=== PATIENT | female | born 1950 | race Caucasian/White ===

== ENCOUNTER 2021-04-05 15:33 | Emergency (ER) | payer MEDICARE, BC ==
[~2021-04-05] VITALS: Ht 154.9 cm; Wt 60.0 kg
[2021-04-05] MEDS ORDERED: NORVASC5 M1 PO (15:43)
[2021-04-05] MEDS ORDERED: RISPERIDONE0.25 MG (15:44)
[2021-04-05] MEDS ORDERED: CLOMIPRAMINE25 MG PO (15:44)
[2021-04-05 19:02] LABS: HEMATOCRIT 40.9 % (37.0-47.0); HEMOGLOBIN 13.3 g/dl (12.0-16.0); IMMATURE GRANULOCYTES 0.2 % (0.0-5.0); MEAN CELL VOLUME 92.7 fL CALC (80.0-100.0); MEAN CORPUSCULAR HGB 30.2 pG CALC (26.0-32.0); MEAN CORPUSCULAR HGB CONC 32.5 g/dL CAL (32.0-36.0); NEUT# 9.46 thou/uL (2.00-7.15); RED BLOOD COUNT 4.41 mill/uL (4.20-5.60); RED CELL DISTRI WIDTH 12.9 % (11.5-15.5)
[2021-04-05 19:18] LABS: ALBUMIN 4.1 g/dL (3.2-5.0); ALKALINE PHOSPHATASE 77 u/l (38-126); ANION GAP 16 (6-22 (CALC)); BILIRUBIN, TOTAL 0.7 mg/dL (0.0-1.4); BUN 9 mg/dL (8-23); BUN/CREATININE RATIO 12 (12-20 (CALC)); CARBON DIOXIDE 25 mmol/l (22-30); CHLORIDE 98 mmol/l (95-108); CREATININE 0.8 mg/dL (0.5-1.0); GFR > 60 ML/MIN (>=60 (CALC)); GFR FOR AFR.AMER. > 60 ML/MIN (>=60 (CALC)); SGOT/AST 20 u/l (9-36); SODIUM 135 mmol/l (137-146); TOTAL PROTEIN 7.4 g/dL (6.3-8.2)
[2021-04-05] MEDS ORDERED: VIBRAMYCIN100 M2 PO (19:45)
[2021-04-05 19:57] VITALS: BP 161/65
== END 2021-04-05 19:57 | disposition home or self-care (01) ==
LOC: ED 15:33
PROVIDERS: Family Medicine
DX: J20.9 Acute bronchitis, unspecified (principal); I10 Essential (primary) hypertension; F32.A Depression, unspecified; Z20.822 Contact with and (suspected) exposure to COVID-19

== ENCOUNTER 2022-05-04 16:36 | Emergency (ER) | payer MEDICARE, BC ==
[~2022-05-04] VITALS: Ht 154.9 cm; Wt 65.0 kg
[~2022-05-04 16:36] MED LIST: CLOMIPRAMINE25 MG PO; NORVASC5 M1 PO; RISPERIDONE0.25 MG; VIBRAMYCIN100 M2 PO
[2022-05-04 18:48] VITALS: BP 122/93
[2022-05-04 19:00] VITALS: BP 126/89
[2022-05-04 19:15] VITALS: BP 127/78
[2022-05-04] MEDS ORDERED: LEVOCETIRIZINE D5 MG PO (19:37)
[2022-05-04] MEDS ORDERED: PREDNISONE10 MG PO (19:37)
[2022-05-04 20:13] VITALS: BP 127/78
== END 2022-05-04 20:14 | disposition home or self-care (01) ==
LOC: ED 16:36
DX: J20.9 Acute bronchitis, unspecified (principal); J45.909 Unspecified asthma, uncomplicated; I10 Essential (primary) hypertension; F32.A Depression, unspecified; T48.6X6A Underdosing of antiasthmatics, initial encounter; T49.6X6A Underdosing of otorhinolaryngological drugs and preparations, initial encounter; Z91.128 Patient's intentional underdosing of medication regimen for other reason; Z20.822 Contact with and (suspected) exposure to COVID-19

== ENCOUNTER 2022-11-05 15:45 | Emergency (ER) | payer MEDICARE, BC ==
[~2022-11-05] VITALS: Ht 154.9 cm; Wt 59.0 kg
[2022-11-05] VITALS (13 sets, daily range): BP systolic 138–178; BP diastolic 70–103
[~2022-11-05 15:45] MED LIST changes: +LEVOCETIRIZINE D5 MG PO; +PREDNISONE10 MG PO
[2022-11-05] MEDS ORDERED: FIORICET PO (18:09)
== END 2022-11-05 18:54 | disposition home or self-care (01) ==
LOC: ED 15:45
DX: S00.83XA Contusion of other part of head, initial encounter (principal); I10 Essential (primary) hypertension; F32.A Depression, unspecified; W01.0XXA Fall on same level from slipping, tripping and stumbling without subsequent striking against object, initial encounter; Y92.009 Unspecified place in unspecified non-institutional (private) residence as the place of occurrence of the external cause

== ENCOUNTER 2022-12-18 13:06 | Emergency (ER) | payer MEDICARE, BC ==
[2022-12-18] VITALS (8 sets, daily range): BP systolic 132–160; BP diastolic 77–93
[~2022-12-18] VITALS: Ht 154.9 cm; Wt 59.8 kg
[~2022-12-18 13:06] MED LIST changes: +FIORICET PO
[2022-12-18 14:26] LABS: ALBUMIN 3.9 g/dL (3.2-5.0); ALKALINE PHOSPHATASE 89 u/l (38-126); BUN 8 mg/dL (8-23); BUN/CREATININE RATIO 11 (12-20 (CALC)); CARBON DIOXIDE 24 mmol/l (22-30); CHLORIDE 93 mmol/l (95-108); CREATININE 0.7 mg/dL (0.5-1.0); GFR FOR AFR.AMER. > 60 ML/MIN (>=60 (CALC)); GFR OTHER RACES > 60 ML/MIN (>=60 (CALC)); POTASSIUM 4.3 mmol/l (3.5-5.1)
[2022-12-18 14:35] LABS: BASO% 0.3 % (0-3); EOS% 1.5 % (0-8); HEMOGLOBIN 12.5 g/dl (12.0-16.0); IMMATURE GRANULOCYTES 0.2 % (0.0-5.0); LYMPH% 18.5 % (15-41); MEAN CELL VOLUME 90.7 fL CALC (80.0-100.0); MEAN CORPUSCULAR HGB 30.6 pG CALC (26.0-32.0); MEAN CORPUSCULAR HGB CONC 33.8 g/dL CAL (32.0-36.0); MONO% 11.7 % (2-13); NEUT# 4.06 thou/uL (2.00-7.15); NEUT% 67.8 % (42-76); RED BLOOD COUNT 4.08 mill/uL (4.20-5.60); RED CELL DISTRI WIDTH 12.6 % (11.5-15.5)
[2022-12-18 14:36] LABS: URINE BILIRUBIN - DIPSTICK Negative (NEGATIVE); URINE BLOOD DIPSTICK Negative (NEGATIVE); URINE GLUCOSE - DIPSTICK Negative (NEGATIVE); URINE KETONE Negative (NEGATIVE); URINE LEUK ESTERASE Negative (NEGATIVE); URINE NITRITE - DIPSTICK Negative (Negative); URINE PH 6.5 (4.5-8.0); URINE PROTEIN - DIPSTICK Negative (NEG-TRACE); URINE UROBILINOGEN - DIPSTICK 0.2 E.U./dL (0.2)
[2022-12-18 14:36] LABS: ANION GAP 11 (6-22 (CALC)); BILIRUBIN, TOTAL 0.4 mg/dL (0.02-1.3); SGOT/AST 36 u/l (9-36); SODIUM 124 mmol/l (137-146)
[2022-12-18 14:37] LABS: URINE COLOR Yellow
[2022-12-18] MEDS ORDERED: AMOX/K CLAV875 M1 PO (16:21)
== END 2022-12-18 16:48 | disposition home or self-care (01) ==
LOC: ED 13:06
PROVIDERS: Nurse Practitioner
DX: L03.311 Cellulitis of abdominal wall (principal); K42.9 Umbilical hernia without obstruction or gangrene; I10 Essential (primary) hypertension; F32.A Depression, unspecified
CPT/HCPCS: Q9967

== ENCOUNTER 2022-12-24 17:17 | Observation (INO) | payer MEDICARE, BC ==
[~2022-12-24] VITALS: Ht 154.9 cm; Wt 59.2 kg
[2022-12-24] VITALS (13 sets, daily range): BP systolic 100–181; BP diastolic 61–97
[~2022-12-24 17:17] MED LIST changes: +AMOX/K CLAV875 M1 PO
--- NOTE | 2022-12-24 17:26 | NUR ---
PATIENT TO ROOM 12
--- NOTE | 2022-12-24 17:45 | NUR ---
IN ROOM TO MEDICATE PT PER EMAR, GASTROGRAFIN STARTED AT 1755, VSS, NAD NOTED, DAUGHTER AT BEDSIDE, CALL LIGHT IN REACH.
[2022-12-24 17:53] LABS: BASO% 0.3 % (0-3); EOS% 0.2 % (0-8); HEMATOCRIT 34.7 % (37.0-47.0); HEMOGLOBIN 11.9 g/dl (12.0-16.0); IMMATURE GRANULOCYTES 0.2 % (0.0-5.0); LYMPH% 15.8 % (15-41); MEAN CELL VOLUME 88.7 fL CALC (80.0-100.0); MEAN CORPUSCULAR HGB 30.4 pG CALC (26.0-32.0); MEAN CORPUSCULAR HGB CONC 34.3 g/dL CAL (32.0-36.0); MONO% 10.3 % (2-13); NEUT# 4.55 thou/uL (2.00-7.15); NEUT% 73.2 % (42-76); RED BLOOD COUNT 3.91 mill/uL (4.20-5.60); RED CELL DISTRI WIDTH 12.6 % (11.5-15.5)
[2022-12-24 18:04] LABS: ALBUMIN 3.5 g/dL (3.2-5.0); ALKALINE PHOSPHATASE 90 u/l (38-126); ANION GAP 13 (6-22 (CALC)); BILIRUBIN, TOTAL 0.4 mg/dL (0.02-1.3); BUN 9 mg/dL (8-23); BUN/CREATININE RATIO 10 (12-20 (CALC)); CARBON DIOXIDE 21 mmol/l (22-30); CHLORIDE 89 mmol/l (95-108); CREATININE 0.9 mg/dL (0.5-1.0); GFR FOR AFR.AMER. > 60 ML/MIN (>=60 (CALC)); GFR OTHER RACES > 60 ML/MIN (>=60 (CALC)); LIPASE 72 u/l (23-300); POTASSIUM 3.7 mmol/l (3.5-5.1); SGOT/AST 35 u/l (9-36); SODIUM 120 mmol/l (137-146); TOTAL PROTEIN 6.3 g/dL (6.3-8.2)
--- NOTE | 2022-12-24 18:25 | NUR ---
PT DRANK 2ND DOSE OF CONTRAST.
--- NOTE | 2022-12-24 18:52 | NUR ---
PT DRANK 3RD CONTRAST.
--- NOTE | 2022-12-24 19:00 | NUR ---
CARE ASSUMED FOR PT; PT FINISHED ORAL CONTRAST; RADIOLOGY NOTIFIED. PT VSS AND NAD AT BEDSIDE
[2022-12-24 19:22] LABS: URINE BILIRUBIN - DIPSTICK Negative (NEGATIVE); URINE BLOOD DIPSTICK Negative (NEGATIVE); URINE GLUCOSE - DIPSTICK Negative (NEGATIVE); URINE KETONE Negative (NEGATIVE); URINE LEUK ESTERASE Negative (NEGATIVE); URINE NITRITE - DIPSTICK Negative (Negative); URINE PH 6.5 (4.5-8.0); URINE PROTEIN - DIPSTICK Negative (NEG-TRACE); URINE UROBILINOGEN - DIPSTICK 0.2 E.U./dL (0.2)
[2022-12-24 19:23] LABS: URINE COLOR Yellow
--- NOTE | 2022-12-24 20:00 | NUR ---
PT TO CT
--- NOTE | 2022-12-24 20:20 | NUR ---
PT RETURNED FROM CT AND BACK ON MONITOR; VSS AND PT NAD AT BEDSIDE
--- NOTE | 2022-12-24 21:08 | NUR ---
PT REMAINS NPO UNTIL CT SCAN BACK; VSS AND PT NAD AT BEDSIDE
--- NOTE | 2022-12-24 21:38 | NUR ---
AWAITING BED ASSIGNMENT FOR PT ADMISSION; PT AWARE; VSS AND NAD AT BEDSIDE; PT GIVEN WATER; OK BY
[2022-12-24] MEDS ORDERED: XANAX0.5 MG PO (21:45)
[2022-12-24] MEDS ORDERED: RISPERDAL1 MG PO (21:45)
[2022-12-24] MEDS ORDERED: CLOMIPRAMINE PO (21:46)
[2022-12-24] MEDS ORDERED: AMLODIPINE BES2.5 MG PO (21:46)
[2022-12-24] MEDS ORDERED: ZOLOFT100 MG PO (21:47)
[2022-12-24] MEDS ORDERED: DIOVAN80 MG PO (21:48)
--- NOTE | 2022-12-24 21:48 | NUR ---
[facility] COMPLETED
--- NOTE | 2022-12-24 22:17 | NUR ---
REPORT RECEIVED FROM Hugo BARTH RN
--- NOTE | 2022-12-24 22:32 | NUR ---
REPORT CALLED TO DIOMEDES MADDOX ON MS; PT TAKEN VIA WC; VSS AND NORVASC ORDERED FOR PT FOR ONE TIME DOSE TONIGHT; DAUGHTER AT BEDSIDE STAYING WITH PT TONIGHT
--- NOTE | 2022-12-25 | NUR ---
SOAP SUDS ENEMA GIVEN AT THIS TIME. PATIENT TOLERATED WELL.
--- NOTE | 2022-12-25 01:00 | NUR ---
PATIENT ENCOURAGED TO SIT ON BEDSIDE COMMODE. PATIENT HAS NOT HAD A BOWEL MOVEMENT AND HAS NOT PASSED ANY OF THE ENEMA. PATIENTS DAUGHTER AT BEDSIDE REPORTS THAT HER MOTHER HAS NOT ACTUALLY SAT ON A TOILET AND ATTAMPTED TO HAVE A BOWEL MOVEMENT. PATIENT NOTED TO EVACUATE DARK BROWN LIQUID. ENCOURAGED TO SIT AWHILE LONGER AND ATTEMPT TO HAVE A BOWEL MOVEMENT.
--- NOTE | 2022-12-25 01:15 | NUR ---
MODERATE HARD BOWEL MOVEMENT.
[2022-12-25 05:04] VITALS: BP 150/92
--- NOTE | 2022-12-25 05:54 | NUR ---
LAB AT BEDSIDE OBTAINING MORNING LABS.
[2022-12-25 06:10] VITALS: BP 157/93
--- NOTE | 2022-12-25 06:11 | NUR ---
YOSELYN LLOYD NOTIFIED WRITTER OF PATIENT B/P .
[2022-12-25 06:55] LABS: BASO% 0.5 % (0-3); EOS% 0.2 % (0-8); HEMATOCRIT 36.3 % (37.0-47.0); HEMOGLOBIN 12.5 g/dl (12.0-16.0); IMMATURE GRANULOCYTES 0.2 % (0.0-5.0); LYMPH% 17.1 % (15-41); MEAN CELL VOLUME 87.9 fL CALC (80.0-100.0); MEAN CORPUSCULAR HGB 30.3 pG CALC (26.0-32.0); MEAN CORPUSCULAR HGB CONC 34.4 g/dL CAL (32.0-36.0); MONO% 10.8 % (2-13); NEUT# 4.55 thou/uL (2.00-7.15); NEUT% 71.2 % (42-76); RED BLOOD COUNT 4.13 mill/uL (4.20-5.60); RED CELL DISTRI WIDTH 12.6 % (11.5-15.5)
[2022-12-25 07:07] LABS: ALBUMIN 3.5 g/dL (3.2-5.0); ALKALINE PHOSPHATASE 104 u/l (38-126); BILIRUBIN, TOTAL 0.4 mg/dL (0.02-1.3); BUN 7 mg/dL (8-23); BUN/CREATININE RATIO 11 (12-20 (CALC)); CARBON DIOXIDE 24 mmol/l (22-30); CHLORIDE 98 mmol/l (95-108); CREATININE 0.6 mg/dL (0.5-1.0); GFR FOR AFR.AMER. > 60 ML/MIN (>=60 (CALC)); GFR OTHER RACES > 60 ML/MIN (>=60 (CALC)); MAGNESIUM 2.3 mg/dL (1.6-2.3); SGOT/AST 37 u/l (9-36); TOTAL PROTEIN 6.3 g/dL (6.3-8.2)
[2022-12-25 07:08] LABS: CHOLESTEROL HDL RATIO 3.1 (<4.4 (CALC))
[2022-12-25 07:13] LABS: ANION GAP 11 (6-22 (CALC)); POTASSIUM 4.6 mmol/l (3.5-5.1); SODIUM 128 mmol/l (137-146)
--- NOTE | 2022-12-25 08:00 | NUR ---
PT RESTING WITH DAUGHTER AT BEDSIDE. ASSESSMENT COMPLETED. UPDATED PT IN CURRENT PLAN OF CARE. PT INIDCATED UNDERSTANDING. FALL/SAFTEY PRECAUTION IN PLACE. CALL LIGHT WITHIN REACH
--- NOTE | 2022-12-25 09:26 | NUR ---
PT STATES PAIN IN HEAD 08/29. MEDICATED. SEE EMAR. FALL/SAFTEY PRECAUTION IN PLACE. CALL LIGHT WITHIN REACH.
[2022-12-25 14:44] VITALS: BP 157/89
--- NOTE | 2022-12-25 15:30 | NUR ---
PT SOAPS SUDS ENEMA COMPLETED. PT TOLERATED WELL. NO SUCESS WITH BOWEL MOVEMENT. PT ABDOMEN DISTENDED/ FIRM. MD LAMAS NOTIFIED/AWARE. FALL/SAFTEY PRECAUTION IN PLACE. CALL LIGHT WITHHN REACH
--- NOTE | 2022-12-25 16:30 | NUR ---
ENCOURAGED CONSUMPTION OF NULYTLEY EDUCATED PT, PT INIDCATED UNDERSTANING. FALL/SAFTEY PRECAUTION IN PLACE. CALL LIGHT WITHIN REACH
--- NOTE | 2022-12-25 19:10 | NUR ---
REPORT RECEIVED FROM Jennifer OROZCO RN
[2022-12-25 19:13] VITALS: BP 150/86
--- NOTE | 2022-12-25 20:30 | NUR ---
BOTTLE OF GOLYTELY AT BEDSIDE WITH LITTLE PROGRESS. BOTTLE WAS STARTED AT ABOUT 4PM TODAY AND PATITENT HAS HAD LESS THAN 300MLS. PATIENT ENCOURAGED TO TAKE GOLYTELY AND INSTRUCTED TO DRINK 8OZ EVERY 10 TO 15 MINUTES. PATIENT STATES THAT NO ONE HAS BEEN CLEAR OF THESE INSTRUCTIONS AND THAT SHE WAS TOLD TO TAKE IT "WHEN SHE COULD". PATIENT ENCOURAGED TO WALK AND TO ATTEMPT TO USE RESTROOM OFTEN. DAUGHTER HAMILTON AT [facility].
--- NOTE | 2022-12-25 22:00 | NUR ---
PATIENT REPORTS THAT SHE NEEDS TO GET SOME REST AND CANNOT FINISH GOLYTELY.
--- NOTE | 2022-12-26 01:30 | NUR ---
PATIENTS DAUGHTER OVERHEARD ASKING HER MOTHER TO STOP DRINKING GO LYTELY BECAUSE SHE WOULD NOT LET HER SLEEP. PATIENT S DAUGHTER REPORTS HER MOTHERKEEPS GETTING UP AND HER STOOLS SMELL LIKE THEY ARE ROTTING. EDUCATED PATIENT AND DAUGHTER THAT STOOLS SMELL AND IT HAS BEEN 12 DAYS SINCE PATIENT HAS HAD A BOWEL MOVEMENT, SMELL IS NORMAL.
[2022-12-26 04:38] VITALS: BP 168/93
--- NOTE | 2022-12-26 04:44 | NUR ---
LAB AT BEDSIDE COLLECTING MORNING LABS.
--- NOTE | 2022-12-26 06:02 | NUR ---
PATIENTS DAUGHTER STANDING OUTSIDE ROOM. WRITTER IN AT THSI TIME PASSING MEDICATION TO ANOTHER PATIENT, INFORMED DAUGHTER WRITTER WOULD BE THERE QUICK POSSIBLE, BUT IS CURRENTLY IN THE MIDDLE OF ASSITING ANOTHER PATIENT.
--- NOTE | 2022-12-26 06:16 | NUR ---
SMALL AMOUNT OF INCONTINENT STOOL NOTED ON SHEETS. PATIENT AND DAUGHTER EDCUATED ON THE EFFECTS OF GOLYTELY. DIAREEAH LIKE STOOLS ARE NORMAL, AND EXPECTED. PATIENT ENCOURAGED TO SHOWER AT THIS TIME. BED SHEETS CHANGED AND PATIENT ASSITED INTO SHOWER.
[2022-12-26 06:29] LABS: BASO% 0.2 % (0-3); EOS% 0.2 % (0-8); HEMOGLOBIN 11.8 g/dl (12.0-16.0); IMMATURE GRANULOCYTES 0.2 % (0.0-5.0); LYMPH% 19.1 % (15-41); MEAN CELL VOLUME 92.1 fL CALC (80.0-100.0); MEAN CORPUSCULAR HGB 31.1 pG CALC (26.0-32.0); MEAN CORPUSCULAR HGB CONC 33.7 g/dL CAL (32.0-36.0); MONO% 9.4 % (2-13); NEUT# 5.92 thou/uL (2.00-7.15); NEUT% 70.9 % (42-76); RED BLOOD COUNT 3.8 mill/uL (4.20-5.60); RED CELL DISTRI WIDTH 12.9 % (11.5-15.5)
[2022-12-26 06:54] LABS: ALBUMIN 3.2 g/dL (3.2-5.0); ALKALINE PHOSPHATASE 106 u/l (38-126); ANION GAP 13 (6-22 (CALC)); BILIRUBIN, TOTAL 0.4 mg/dL (0.02-1.3); BUN 4 mg/dL (8-23); BUN/CREATININE RATIO 7 (12-20 (CALC)); CARBON DIOXIDE 20 mmol/l (22-30); CHLORIDE 99 mmol/l (95-108); CREATININE 0.6 mg/dL (0.5-1.0); GFR FOR AFR.AMER. > 60 ML/MIN (>=60 (CALC)); GFR OTHER RACES > 60 ML/MIN (>=60 (CALC)); POTASSIUM 4.3 mmol/l (3.5-5.1); SGOT/AST 31 u/l (9-36); SODIUM 127 mmol/l (137-146); TOTAL PROTEIN 5.7 g/dL (6.3-8.2)
[2022-12-26 07:37] VITALS: BP 149/79
--- NOTE | 2022-12-26 10:00 | NUR ---
PATIENT HAD A COUPLE MORE STOOLS WITHOUT ANY PROBLEM. PATIENT WAS PROVIDED ZOFRAN FOR NAUSEA. DAUGHTER AT BEDSIDE. EDUCATION ON PREVENTION CONSTIPATION WAS GIVEN TO BOTH PATIENT AND DAUGHTER STATING UNDERSTANDING. PLAN OF CARE ONGOING.
[2022-12-26 11:09] VITALS: BP 153/83
[2022-12-26] MEDS ORDERED: ONDANSETRON4 MG PO (14:50)
[2022-12-26] MEDS ORDERED: MIRALAX17 GM PO (14:51)
[2022-12-26] MEDS ORDERED: CONSTULOSE10 GM/15 M PO (14:57)
[2022-12-26] MEDS ORDERED: [UNRECOGNIZED DRUG - MIXTURE] PO (15:23)
--- NOTE | 2022-12-26 15:56 | NUR ---
Discharge instructions given. Patient verbalizes understanding of same. Discharged in stable condition via Wheelchair to Home with relative. All belongings sent with pt.
== END 2022-12-26 15:55 | disposition home or self-care (01) ==
LOC: ED 17:17 → MS2 21:28
PROVIDERS: Family Medicine; ADMIT Student in an Organized Health Care Education/Training Program; ATTEND Student in an Organized Health Care Education/Training Program
DX: K56.41 Fecal impaction (principal); E87.1 Hypo-osmolality and hyponatremia; L03.311 Cellulitis of abdominal wall; I10 Essential (primary) hypertension; F32.A Depression, unspecified; F41.9 Anxiety disorder, unspecified; Z79.899 Other long term (current) drug therapy; Z20.822 Contact with and (suspected) exposure to COVID-19
CPT/HCPCS: J1650; Q9967

== ENCOUNTER 2023-06-08 10:53 | Emergency (ER) | payer MEDICARE, BC ==
[~2023-06-08] VITALS: Ht 154.9 cm; Wt 59.0 kg
[~2023-06-08 10:53] MED LIST changes: +AMLODIPINE BES2.5 MG PO; +CLOMIPRAMINE PO; +CONSTULOSE10 GM/15 M PO; +DIOVAN80 MG PO; +MIRALAX17 GM PO; +ONDANSETRON4 MG PO; +RISPERDAL1 MG PO; +XANAX0.5 MG PO; +ZOLOFT100 MG PO; +[UNRECOGNIZED DRUG - MIXTURE] PO
[2023-06-08 11:05] VITALS: BP 105/79
[2023-06-08 11:30] VITALS: BP 112/83
[2023-06-08] MEDS ORDERED: Diph, Acellular Pertussis, Tet 0.5 ML/VIAL (Tdap) SDV IM ONE (11:35)
[2023-06-08] MEDS ORDERED: KETOROLAC TROMETHAMINE 30 MG/ML SDV IM ONE (12:15)
[2023-06-08 14:52] VITALS: BP 112/83
[2023-06-08] MEDS ORDERED: NAPROXEN500 MG PO (14:59)
== END 2023-06-08 15:23 | disposition home or self-care (01) ==
LOC: ED 10:53
DX: S80.01XA Contusion of right knee, initial encounter (principal); I10 Essential (primary) hypertension; F32.A Depression, unspecified; W10.9XXA Fall (on) (from) unspecified stairs and steps, initial encounter

== ENCOUNTER 2023-11-16 18:49 | Emergency (ER) | payer MEDICARE, BC ==
[~2023-11-16] VITALS: Ht 157.5 cm; Wt 66.0 kg
[~2023-11-16 18:49] MED LIST changes: +NAPROXEN500 MG PO
[2023-11-16 19:08] VITALS: BP 174/97
[2023-11-16 19:30] VITALS: BP 149/91
[2023-11-16] MEDS ORDERED: CELEBREX200 M1 PO (19:55)
[2023-11-16 20:00] VITALS: BP 156/91
[2023-11-16] MEDS ORDERED: DEXAMETHASONE 2 MG/TAB TAB PO ONE (20:15)
[2023-11-16] MEDS ORDERED: ACETAMINOPHEN 500 MG TAB PO ONE (20:15)
[2023-11-16 20:17] VITALS: BP 156/91
== END 2023-11-16 20:42 | disposition home or self-care (01) ==
LOC: ED 18:49
DX: M70.832 Other soft tissue disorders related to use, overuse and pressure, left forearm (principal); I10 Essential (primary) hypertension; F32.A Depression, unspecified; Y93.89 Activity, other specified

== ENCOUNTER 2024-01-01 15:58 | Emergency (ER) | payer OTHER, MEDICARE, BC ==
[2024-01-01] VITALS (7 sets, daily range): BP systolic 139–163; BP diastolic 87–99
[~2024-01-01] VITALS: Ht 157.5 cm; Wt 57.0 kg
[~2024-01-01 15:58] MED LIST changes: +CELEBREX200 M1 PO
[2024-01-01] MEDS ORDERED: KETOROLAC TROMETHAMINE 15 MG/ML SDV IM ONE (16:35)
[2024-01-01] MEDS ORDERED: predniSONE 20 MG/TAB PO ONE (16:35)
[2024-01-01] MEDS ORDERED: METHOCARBAMOL 500 MG/TAB PO ONE (16:35)
[2024-01-01] MEDS ORDERED: METHOCARBAMOL500 MG PO (17:39)
[2024-01-01] MEDS ORDERED: MEDDOSEPAK PO (17:39)
== END 2024-01-01 18:03 | disposition home or self-care (01) | DRG 552 ==
LOC: ED 15:58
DX: S16.1XXA Strain of muscle, fascia and tendon at neck level, initial encounter (principal); I10 Essential (primary) hypertension; F32.A Depression, unspecified; V49.40XA Driver injured in collision with unspecified motor vehicles in traffic accident, initial encounter

== ENCOUNTER 2024-01-16 09:44 | Emergency (ER) | payer MEDICARE, BC ==
[~2024-01-16] VITALS: Ht 157.5 cm; Wt 59.4 kg
[~2024-01-16 09:44] MED LIST changes: +MEDDOSEPAK PO; +METHOCARBAMOL500 MG PO
[2024-01-16 09:53] VITALS: BP 127/72
[2024-01-16] MEDS ORDERED: IPRATROPIUM-Albuterol 0.5MG-2.5MG/3 ML NEB ONE (10:00)
[2024-01-16 10:01] VITALS: BP 121/69
[2024-01-16 10:15] VITALS: BP 120/76
[2024-01-16 10:30] VITALS: BP 127/73
[2024-01-16] MEDS ORDERED: BENZONATATE200 MG PO (10:42)
[2024-01-16] MEDS ORDERED: PROVENTIL HFA108 MCG IN (10:42)
[2024-01-16] MEDS ORDERED: PREDNISONE50 MG PO (10:42)
[2024-01-16 10:45] VITALS: BP 133/74
[2024-01-16 10:59] VITALS: BP 133/74
== END 2024-01-16 11:00 | disposition home or self-care (01) ==
LOC: ED 09:44
DX: J20.9 Acute bronchitis, unspecified (principal); I10 Essential (primary) hypertension; F32.A Depression, unspecified

== ENCOUNTER 2024-05-11 15:38 | Emergency (ER) | payer MEDICARE, BC ==
[~2024-05-11] VITALS: Ht 157.5 cm; Wt 54.0 kg
[~2024-05-11 15:38] MED LIST changes: +BENZONATATE200 MG PO; +PREDNISONE50 MG PO; +PROVENTIL HFA108 MCG IN
[2024-05-11 16:41] VITALS: BP 151/93
[2024-05-11 16:45] VITALS: BP 178/105
[2024-05-11] MEDS ORDERED: DOXYCYCLINE100 MG PO (17:07)
[2024-05-11] MEDS ORDERED: DOXYCYCLINE HYCLATE 100 MG/CAP PO ONE (17:10)
[2024-05-11 17:34] VITALS: BP 178/105
== END 2024-05-11 17:39 | disposition home or self-care (01) ==
LOC: ED 15:38
DX: L03.116 Cellulitis of left lower limb (principal); S90.812A Abrasion, left foot, initial encounter; I10 Essential (primary) hypertension; W55.03XA Scratched by cat, initial encounter

== ENCOUNTER 2024-05-12 16:08 | Emergency (ER) | payer MEDICARE, BC ==
[~2024-05-12] VITALS: Ht 157.5 cm; Wt 65.0 kg
[~2024-05-12 16:08] MED LIST changes: +DOXYCYCLINE100 MG PO
[2024-05-12 16:55] VITALS: BP 140/78
[2024-05-12 17:00] VITALS: BP 154/80
[2024-05-12 17:30] VITALS: BP 138/83
[2024-05-12 18:00] VITALS: BP 137/79
[2024-05-12 18:09] LABS: HEMATOCRIT 36.5 % (37.0-47.0); MEAN CELL VOLUME 91.7 fL CALC (80.0-100.0); MEAN CORPUSCULAR HGB 30.2 pG CALC (26.0-32.0); MEAN CORPUSCULAR HGB CONC 32.9 g/dL CAL (32.0-36.0); RED BLOOD COUNT 3.98 mill/uL (4.20-5.60); RED CELL DISTRI WIDTH 12.7 % (11.5-15.5)
[2024-05-12 18:14] VITALS: BP 147/124
[2024-05-12 18:24] VITALS: BP 147/124
== END 2024-05-12 18:29 | disposition home or self-care (01) ==
LOC: ED 16:08
PROVIDERS: Family Medicine
DX: L03.115 Cellulitis of right lower limb (principal); I10 Essential (primary) hypertension; S90.811D Abrasion, right foot, subsequent encounter; W55.03XD Scratched by cat, subsequent encounter

== ENCOUNTER 2024-05-24 18:57 | Emergency (ER) | payer MEDICARE, BC ==
[~2024-05-24] VITALS: Ht 157.5 cm; Wt 58.0 kg
[2024-05-24 19:51] VITALS: BP 131/96
== END 2024-05-24 19:51 | disposition left against medical advice (07) ==
LOC: ED 18:57 → LWOBS 19:51 → ED 19:51
DX: Z53.21 Procedure and treatment not carried out due to patient leaving prior to being seen by health care provider (principal)